=== PATIENT | male | born 1995 | race Caucasian/White ===

== ENCOUNTER 2022-10-08 17:08 | Emergency (ER) | payer OTHER ==
[2022-10-08 17:19] VITALS: BP 124/81; PULSE 75; RESP 18; TEMP 98; BMI 26.4
[2022-10-08] MEDS ORDERED: SODIUM CHLORIDE 1,000 ML IV ONE (18:18)
[2022-10-08] MEDS ORDERED: KETOROLAC TROMETHAMINE 30 MG/1 ML VIAL IVPUSH ONE (18:18)
[2022-10-08] MEDS ORDERED: METOCLOPRAMIDE HCL INJECTION 10 MG/2 ML VIAL IVPUSH ONE (18:18)
[2022-10-08] MEDS ORDERED: METOCLOPRAMIDE HCL INJECTION 10 MG/2 ML VIAL ONE (18:23)
[2022-10-08] MEDS ORDERED: KETOROLAC TROMETHAMINE 15 MG/ML VIAL ONE (18:23)
[2022-10-08 19:02] LABS: HEMATOCRIT 47.2 % (35.4-49); HEMOGLOBIN 16.6 G/dL (11.7-16.9); MCH 32.6 pg (25.7-33.7); MCHC 35.1 g/dl (32.0-35.9); MEAN PLT VOLUME 8.5 fl (7.5-11.1); RBC 5.08 10^6/uL (4.00-5.60); RDW 14.4 % (11.9-15.9); WHITE BLOOD COUNT 11.8 10^3/uL (4.0-10.8)
[2022-10-08 19:06] LABS: CALCIUM 9.6 mg/dl (8.5-10)
[2022-10-08 21:20] LABS: PLATELET ESTIMATE ADEQUATE
== END 2022-10-08 20:20 | disposition home or self-care (01) ==
LOC: FER 17:08
PROC: 3E033GC Introduction of Other Therapeutic Substance into Peripheral Vein, Percutaneous Approach (ICD-10-PCS; principal; 2022-10-08)
DX: R51.9 Headache, unspecified (principal)
CPT/HCPCS: 0241U-QW; 36415; 80048; 81003; 85027; 99284-25